=== PATIENT | female | born 1950 | race African-American/Black ===

== ENCOUNTER 2017-01-19 05:20 | Inpatient (IN) | payer OTHER ==
[2017-01-14 13:15] LABS: URINE BLOOD NEGATIVE (Negative); URINE COLOR ORANGE; URINE GLUCOSE-RANDOM* NEGATIVE (Negative); URINE KETONES NEGATIVE (Negative); URINE LEUKOCYTES-REFLEX NEGATIVE (Negative); URINE PROTEIN (DIPSTICK) NEGATIVE (Negative)
[2017-01-14 13:16] LABS: URINE BILIRUBIN NEGATIVE (Negative)
[2017-01-14 13:16] LABS: MCH 26.3 pg (26.0-34.0); MCHC 33.4 g/dL (28.0-37.0); MCV 78.7 fL (80.0-100.0); RBC 4.96 mil/uL (4.20-5.00); RDW 16.2 % (10.5-14.5); WBC 11.2 thou/uL (4.0-11.0)
[2017-01-14 13:23] LABS: CREATININE 0.8 mg/dL (0.6-1.0); POTASSIUM 3.2 mmol/L (3.5-5.1)
[2017-01-14 13:28] LABS: PROTIME 10.7 Seconds (9.3-11.4)
[~2017-01-19] VITALS: Ht 162.6 cm; Wt 93.0 kg
--- NOTE | ~2017-01-19 | O ---
[facility] [place] [address] OPERATIVE REPORT Name: JHONY GALLO Room #: 410-P ADM IN M.R.#: [id number] Admission: 01/19/17 Attend Phys: Jesus Cantu MD Discharge: Date of : 48 Report #: [id number] THIS REPORT FOR: //name// CC: Jesus Hdzson DATE OF SERVICE: 01/19/2017 PREOPERATIVE DIAGNOSIS: Right hip osteoarthritis. POSTOPERATIVE DIAGNOSIS: Right hip osteoarthritis. PROCEDURE: Right total hip arthroplasty. SURGEON: Jesus Cantu MD STAFF SCIENTIST: Marquita Olguin PA-C INDICATIONS FOR STAFF SCIENTIST: Throughout the case, extensive retraction of the tissues as well as dislocation and reduction of the hip was required and this was afforded to me by my physician ssn/ssbn assistant navigator. ANESTHESIA: General. IMPLANTS: Sy and Nephew size 12 high offset Synergy press-fit femur, size 52 R3 acetabular cup with one acetabular screw and a size 36 -3 cobalt chrome head. ESTIMATED BLOOD LOSS: 150 mL. COMPLICATIONS: None. SPECIMENS: None. CONDITION UPON LEAVING THE OR: Stable. INDICATIONS FOR PROCEDURE: The patient is a 66-year-old female with severe right hip osteoarthritis. She had failed conservative treatment for this and after discussion with her, she elected for right total hip arthroplasty. DESCRIPTION OF PROCEDURE: Risks, benefits, alternatives, complications were discussed in detail with the patient including but not limited to risk of anesthesia, risk of damage to nerves, arteries, blood vessels, risk for infection, bleeding, risk for continued hip pain, leg length discrepancy, instability and need for reoperation. Informed consent was obtained from the patient. The right hip was appropriately marked in the preoperative holding area. IV clindamycin was given for preoperative antibiotics. She was brought [address] [address] OPERATIVE REPORT Name: JHONY GALLO Zarina Room #: 410-P [facility] IN ..#: [id number] Admission: 01/19/17 Attend Phys: Jesus Cantu MD Discharge: Date of : 48 Report #: [id number] to the operating room and placed in supine position on operating room table. General endotracheal anesthesia was induced without complication. She was then placed in the left lateral decubitus position with the right hip uppermost. Right hip and lower extremity were prepped and draped in normal sterile fashion. Timeout was performed properly identifying the patient and procedure as well as the instrumentation and implants. All in the operating room were in agreement. A standard posterior approach to the hip was made with 10 blade through the skin. Dissection was taken down to the fascia with Bovie cautery and fascia was cleaned with Low elevator. Fresh 10 blade was used to make a fascial incision. This was taken proximally and distally with curved Grimes scissor. Charnley retractor was placed. The piriformis tendon was identified, tagged and taken down with Bovie. The trochanteric bursa was taken down with Bovie and short external rotators were also taken down with Bovie cautery. Capsulotomy was made and capsule ends were tagged for later repair. The hip was dislocated and there was extensive osteoarthritic change of the femoral head with loss of articular cartilage as well as osteophyte formation. Femoral neck cut was made 1 cm proximal to lesser trochanter based on preoperative templating and the femoral head was removed. Deep acetabular retractors were placed and the labrum was removed sharply. Pulvinar was removed with Bovie cautery. The acetabulum was then sequentially reamed up to a size 52, at which point, there was excellent bleeding cancellous bone. There were 2 cysts in the acetabulum that were curetted out with an angled curette and bone grafted with the reamings from the acetabular reamers. A size 52 R3 acetabular cup was placed. One acetabular screw was placed for backup fixation and a polyethylene liner for a 36 head was placed. After this, attention was turned to the femur. This was reamed and broached up to a size 12, at which point, the size 12 broach was stable. This was trialed with a high offset neck and a 36+0 head. Hip was reduced, taken through range of motion, found to be stable, found to have equal leg lengths. Hip was dislocated and the broach was removed and final size 12 high offset Synergy press fit stem was placed. This did not seat quite as fully as the broach and so this was then trialed with a 36-3 head. Hip was reduced, taken through range of motion, found to be stable, found to have equal leg lengths and good stability. Hip was dislocated once more and a final size 36 -3 cobalt chrome head was placed. Hip was reduced, taken through range of motion, found to be stable, found to have equal leg lengths. A periarticular injection consisting of morphine, ropivacaine, epinephrine and Toradol was placed in the capsular tissues. The capsule was repaired with 0 FiberWire. Piriformis was repaired with 0 FiberWire. Vancomycin 1 gram was placed in the hip joint prior to closure. Fascia was closed with 0 Vicryl, skin was closed with 2-0 Vicryl and 3-0 Monocryl and a YOLANDE dressing was applied. The patient tolerated this procedure well and went to the recovery room under the care of anesthesia postoperatively. <ELECTRONICALLY SIGNED> By: Jesus Cantu MD 01/21/17 0728 [id number] Jesus Cantu MD /nt
[~2017-01-19 05:20] MED LIST: AMBIEN 5 MG TABL5 M1 PO; COZAAR 50 MG TA50 M2 PO; INDAPAMIDE2.5 MG PO; NEURONTIN 300300 M1 PO; NORTRIPTYLINE H50 M3 PO; SERTRALINE HCL50 MG PO; VITAMIN D1000 UNI1 PO
[2017-01-19 09:00] VITALS: BP 141/69
[2017-01-19 13:30] VITALS: BP 126/75
[2017-01-19 14:00] VITALS: BP 121/69
[2017-01-19 15:00] VITALS: BP 110/71
[2017-01-19 16:00] VITALS: BP 120/70
[2017-01-19 21:51] VITALS: BP 114/73
[2017-01-20 01:06] VITALS: BP 99/61
[2017-01-20 04:13] VITALS: BP 101/68
[2017-01-20 06:10] LABS: HEMATOCRIT 29.6 % (37.0-47.0); HEMOGLOBIN 9.8 gm/dL (12.0-15.0); MCH 26.1 pg (26.0-34.0); MCHC 33.1 g/dL (28.0-37.0); MCV 78.7 fL (80.0-100.0); RBC 3.76 mil/uL (4.20-5.00); RDW 16.1 % (10.5-14.5); WBC 13.6 thou/uL (4.0-11.0)
[2017-01-20 07:45] VITALS: BP 112/69
[2017-01-20 15:00] VITALS: BP 123/63
[2017-01-20 19:26] VITALS: BP 108/66
[2017-01-21 04:48] VITALS: BP 97/62
[2017-01-21 06:05] LABS: HEMATOCRIT 31.9 % (37.0-47.0); HEMOGLOBIN 10.6 gm/dL (12.0-15.0); MCHC 33.2 g/dL (28.0-37.0); MCV 78.3 fL (80.0-100.0); RBC 4.07 mil/uL (4.20-5.00); RDW 16.2 % (10.5-14.5)
[2017-01-21] MEDS ORDERED: CVS BUFFERED A325 MG PO (08:27)
[2017-01-21] MEDS ORDERED: PERCOCET 10-321 EACH PO (08:28)
[2017-01-21] MEDS ORDERED: MS CONTIN15 MG PO (08:28)
[2017-01-21 08:45] VITALS: BP 109/68
[2017-01-21 09:59] VITALS: BP 109/68
== END 2017-01-21 11:14 | disposition home or self-care (01) | DRG 470 ==
LOC: PRE 05:20 → 4N 05:24 → TBA 05:24 → PRE 10:45 → 4N 13:44 → ENTRNSPT 01-21 11:14 → DELTRNSPT 01-21 11:15
PROVIDERS: Orthopaedic Surgery
PROC: 0SR904Z Replacement of Right Hip Joint with Ceramic on Polyethylene Synthetic Substitute, Open Approach (ICD-10-PCS; principal; 2017-01-19)
DX: M16.11 Unilateral primary osteoarthritis, right hip (principal); I10 Essential (primary) hypertension; Z88.0 Allergy status to penicillin; Z88.1 Allergy status to other antibiotic agents; Z88.2 Allergy status to sulfonamides
CPT/HCPCS: 10790; 50010; 50101; 50382; 50414; 51057; 51226; 51771; 53000; 53367; 54118; 56460; 56524; 56527; 56528; 56530; 57095; 62110; 62900; 70005

== ENCOUNTER 2018-08-23 05:39 | Inpatient (IN) | payer OTHER ==
[2018-08-17 09:09] LABS: URINE BILIRUBIN NEGATIVE (Negative); URINE BLOOD TRACE (Negative); URINE CLARITY CLEAR; URINE COLOR YELLOW; URINE GLUCOSE-RANDOM* NEGATIVE (Negative); URINE KETONES NEGATIVE (Negative); URINE LEUKOCYTES-REFLEX NEGATIVE (Negative); URINE NITRITE-REFLEX NEGATIVE (Negative); URINE PROTEIN (DIPSTICK) NEGATIVE (Negative); URINE SPECIFIC GRAVITY <= 1.005 (1.005-1.035); URINE UROBILINOGEN 0.2 E.U./dl (0.2-1.0)
[2018-08-17 09:12] LABS: PROTIME 10.2 Seconds (9.3-11.4)
[~2018-08-23] VITALS: Ht 160 cm; Wt 92.5 kg
--- NOTE | ~2018-08-23 | O ---
[facility] [place] [address] OPERATIVE REPORT Name: JHONY GALLO Room #: 150-6 ADM IN M.R.#: [id number] Admission: 08/23/18 ������������������ Attend Phys: Jesus Cantu MD Discharge: ������������������ Date of : 48 Report #: [id number] THIS REPORT FOR: //name// CC: Jesus Berman DATE OF SERVICE: 08/23/2018 PREOPERATIVE DIAGNOSIS: Left knee valgus osteoarthritis. POSTOPERATIVE DIAGNOSIS: Left knee valgus osteoarthritis. PROCEDURE: Left total knee arthroplasty with Navio robotic assistance. SURGEON: Jesus Cantu M.D. STAFF GENETIC COUNSELOR: Marquita Olguin PA-C. INDICATIONS FOR STAFF GENETIC COUNSELOR: Throughout the case, extensive retraction and manipulation of the knee was required. This was afforded to me by my pediatric medical assistant. ANESTHESIA: LMA with an adductor canal block. IMPLANTS: Sy and Nephew size 5 Legion cobalt-chrome posterior stabilized femur, size 4 tibia, size 9 highly constrained polyethylene and size 32 patella. TOURNIQUET TIME: 62 minutes. ESTIMATED BLOOD LOSS: 25 mL. COMPLICATIONS: None. SPECIMENS: None. CONDITION UPON LEAVING THE OPERATING ROOM: Stable. INDICATION FOR PROCEDURE: The patient is a 67-year-old female with severe left knee valgus osteoarthritis. She had failed conservative measures for this and after discussion with her, she elected for left total knee arthroplasty. DESCRIPTION OF PROCEDURE: Risks, benefits, alternatives and complications were discussed in detail with the patient including, but not limited to risk of anesthesia; risk of damage to nerves, arteries or blood vessels; risk for infection or bleeding; risk for continued knee pain and need for reoperation. Informed consent was obtained from the patient. [address] [address] OPERATIVE REPORT Name: JHONY GALLO Room #: 150-6 ADM IN M.R.#: [id number] Admission: 08/23/18 ������������������ Attend Phys: Jesus Cantu MD Discharge: ������������������ Date of : 48 Report #: [id number] The left knee was appropriately marked in the preoperative holding area. IV clindamycin was given for preoperative antibiotics. She was brought to the operating room and placed in the supine position on the operating room table. LMA anesthesia was induced without complication. Tourniquet was placed on the left thigh. Left lower extremity was prepped and draped in the normal sterile fashion. Timeout was performed, properly identifying the patient and procedure as well as the instrumentation and implants. All in the operating room were in agreement. The left lower extremity was exsanguinated, tourniquet was inflated. Tourniquet time was 62 minutes. Standard midline approach to the knee was made with 10 blade through the skin. Dissection was taken down sharply to the fascia and deep flaps were developed medially and laterally. Fresh 10 blade was used to make a medial parapatellar arthrotomy and the knee was inspected. There was severe valgus osteoarthritic change. ACL and PCL were removed sharply. Reference pins were then placed in the femur and the tibia and the knee was digitally mapped using the Navio robotic system. Intraoperative plan was made and we sized to a size 5 femur, size 4 tibia with a size 9 polyethylene. After acceptance of the intraoperative plan, the distal femoral cut was made using the Navio morelia. The 4-in-1 size 5 cutting block was then placed. Anterior and posterior chamfer cuts were made. Attention was then turned to the tibia. The remainder of the menisci was removed with Bovie cautery. Tibial resection guide was pinned in place using the Navio port placement and the tibial resection was made. After this, flexion and extension gaps were checked and found to have good balance laterally, with moderate laxity medially. We did not want to melba our medial gap and it was felt that a highly constrained polyethylene would make up for the laxity medially. The tibia was sized and found to be a size 4. A size 4 tibial trial was placed, pinned and punched. A size 5 femoral trial was placed and the box cut was made. This was then trialed with a size 9 highly constrained polyethylene. Knee was taken through range of motion and found to have good stability, both medially and laterally, throughout range of motion both digitally as well as medially. A 9 mm was taken off the posterior surface of the patella and a size 32 patellar trial button was placed. Knee was taken through range of motion and found to be stable and found to have good patellar tracking. After this, trial components were removed. Bony ends were thoroughly irrigated with normal saline. A final size 4 tibia, size 5 Legion cobalt-chrome posterior stabilized femur and a size 32 patella were cemented in place using standard cementation techniques. While the cement cured, a periarticular injection consisting of morphine, ropivacaine, epinephrine and Toradol was placed around the knee joint capsule. After the cement cured, the tourniquet was deflated and hemostasis was obtained with Bovie cautery. A final size 9 highly constrained polyethylene was placed. A gram of vancomycin was placed in the joint and fascia was closed with 0 Vicryl, skin was closed with 2-0 Vicryl and 3-0 Monocryl. Dermabond and a YOLANDE dressing was applied. The patient [address] [address] OPERATIVE REPORT Name: JHONY GALLO Room #: 150-6 [facility] IN ..#: [id number] Admission: 08/23/18 ������������������ Attend Phys: Jesus Cantu MD Discharge: ������������������ Date of : 48 Report #: [id number] tolerated this procedure well and went to recovery room under the care of Anesthesia postoperatively. ��������������������������������������������� ���������������������������������������� By: ��������������������������������������������� 1237 [id number] Jesus Cantu MD /nt
[~2018-08-23 05:39] MED LIST changes: +ASPIR 8181 MG PO; +COZAAR100 MG PO; +CVS BUFFERED A325 MG PO; +MS CONTIN15 MG PO; +NORTRIPTYLINE H50 MG PO; +PERCOCET 10-321 EACH PO; +REMERON 30 MG T30 M1 PO; +TRI-BUFFERED A325 M1 PO; +VENTOLIN HFA 1818 GM INH; +ZOLOFT100 MG PO
[2018-08-23 12:08] VITALS: BP 133/67
[2018-08-23 17:00] VITALS: BP 129/84
[2018-08-23 20:03] VITALS: BP 116/69
[2018-08-24] VITALS: BP 116/71
[2018-08-24 04:00] VITALS: BP 116/71
[2018-08-24 04:10] VITALS: BP 116/71
[2018-08-24 05:38] LABS: HEMATOCRIT 32.2 % (37.0-47.0); HEMOGLOBIN 10.7 gm/dL (12.0-15.0); MCH 26.6 pg (26.0-34.0); MCHC 33.2 g/dL (28.0-37.0); MCV 80.1 fL (80.0-100.0); RBC 4.02 mil/uL (4.20-5.00); RDW 16.4 % (10.5-14.5); WBC 15.7 thou/uL (4.0-11.0)
[2018-08-24 07:26] VITALS: BP 104/68
--- NOTE | 2018-08-24 07:31 | NUR ---
progress pain controlled with scheduled meds and prn hydrocodone up with 1 walker and gait belt gait steady voiding qs block to left leg still working numbness and tingling dissipated throughout night. ivf's infusing as ordered, pedal pulses positive good sensation and movement weight bearing without difficulty continue to monitor.
--- NOTE | 2018-08-24 13:15 | NUR ---
TOWARDS POC PT A/O X4, VSS,AFEBRILE. PAIN MANAGED BY MEDS. PT THERAPY ABLE TO WORK WITH HER. PT ABLE TO WALK TO THE ST. NO CONCERNS VOICED, WILL CONTINUE TO MONITOR.
[2018-08-24 14:05] VITALS: BP 110/56
--- NOTE | 2018-08-24 14:39 | NUR ---
PT ADMITTED RELATED TO LEFT TOTAL KNEE REPLACEMENT. CM REVIEWED CHART AND SPOKE WITH CARE TEAM. CM MET WITH PT AT BEDSIDE THIS DAY. PT IS A&O X4. CM ROLE INTRODUCED. PT INDICATED SHE SHE LIVES IN A HOUSE WITH HER SON WITH NO STEPS TO ENTER BUT 13 STEPS TO MAIN LIVING AREA. PT INDICATED SHE HAS FWW ISSUED WHEN SHE HAD A HIP REPLACEMENT IN 2017. 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 PT INDICATED SHE IS ESTABLISHED WITH OP PT AT [facility]. CM TO FOLLOW SHOULD ANY DC NEEDS ARISE.
--- NOTE | 2018-08-24 17:45 | NUR ---
PATIENT JUST ARRIVED ON UNIT FROM #461 TO ROOM #226. PATIENT ORIENTED AND SETTLED IN BED. CALL LIGHT WITHIN REACH.
[2018-08-24 19:44] VITALS: BP 136/75
--- NOTE | 2018-08-25 02:16 | NUR ---
Assumed pt. care at 1900. Remains A&Ox3; swallows meds whole w/o difficulty. Remains cont. B&B. Ambulates to bathroom w/ walker; gait steady. Remains s/p L total Knee. DRSG to site remains C/D/I, at this time. Knee high teds intact to BLEs. R wrist SL noted/flushed w/ NS w/o difficulty; no blood return noted. Glasses noted to face. Pt has no c/o pain or discomfort. No s/s of acute distress noted. Pt. asleep in bed w/ call light/desired belongings withi reach. PO fluids encouraged. Will continue to monitor.
[2018-08-25 06:46] LABS: HEMATOCRIT 34.1 % (37.0-47.0); HEMOGLOBIN 11.3 gm/dL (12.0-15.0); MCH 26.6 pg (26.0-34.0); MCHC 33.2 g/dL (28.0-37.0); MCV 80.2 fL (80.0-100.0); RBC 4.26 mil/uL (4.20-5.00); RDW 16.5 % (10.5-14.5)
[2018-08-25 07:42] VITALS: BP 120/80
--- NOTE | 2018-08-25 10:06 | NUR ---
SW reviewed chart and spoke with nursing and attending physician. Pt was [facility] to [facility] and is progressing towards goals for discharge. Pt is s/p left TKA. Discharge home with outpatient therapy is anticipated for tomorrow. KALLIE is following to assist as needed with discharge planning.
[2018-08-25] MEDS ORDERED: TRI-BUFFERED A325 M1 PO (10:16)
--- NOTE | 2018-08-25 12:14 | NUR ---
SW received consult for HH services. SW reviewed chart and spoke with nursing. Pt was transferred to [facility] from and is progressing towards goals for discharge. Discharge home is anticipated for tomorrow. KALLIE met with pt at bedside to discuss discharge plan. Pt agreeable with having HH services at time of discharge and then will transition to outpatient therapy at [facility]. KALLIE provided pt with list of in-network HH agencies for review. No preference voiced. Patient Vendor Choice Letter signed and placed on chart. KALLIE confirmed pt's home address and phone number. Pt's PCP is Dr. Good Berman. KALLIE notified intake at [facility] of new HH referral. KALLIE is following to assist as needed with discharge planning.
[2018-08-25 13:23] VITALS: BP 120/80
--- NOTE | 2018-08-25 13:59 | NUR ---
PATIENT CARE WAS ASSUMED AT 0715.PATIENT IS ALERT AND ORIENTED X4.PATIENT WAS OKAY TO AMBULATE ON HER OWN WITH WALKER PER PT.PATIENT HAS IV INTACT AND SALINE LOCKED.PATIENT HAS NO PAIN AT THIS TIME.WILL GIVE PAIN MEDS WITH MORNING MEDS.PT HAS CALL LIGHT,PHONE, AND PERSONAL BELONGINGS WITHIN REACH.
--- NOTE | 2018-08-25 14:09 | NUR ---
PATIENT WAS DISCHARGED TO GO HOME WITH HOME HEALTH.IV WAS TAKEN OUT.DISCHARGE PAPERWORK WAS GIVEN TO PATIENT WITH EDUCATION ON NEW MEDS.PATIENT HAS ALLOF HER BELONGINGS.PT WAS TAKEN TO CAR WITH FRIEND, AND TRANSPORT.
== END 2018-08-25 14:15 | disposition home health service (06) | DRG 470 ==
LOC: 4W 05:39 → TBA 05:39 → PRE 05:41 → 4W 17:34 → SICU 08-24 17:38 → ENTRNSPT 08-25 13:42 → EDTRNSPTSTS 08-25 13:45 → SICU 08-25 14:15
PROVIDERS: ADMIT Orthopaedic Surgery
PROC: 0SRD0J9 Replacement of Left Knee Joint with Synthetic Substitute, Cemented, Open Approach (ICD-10-PCS; principal; 2018-08-23)
PROC: 8E0Y0CZ Robotic Assisted Procedure of Lower Extremity, Open Approach (ICD-10-PCS; principal; 2018-08-23)
DX: M17.12 Unilateral primary osteoarthritis, left knee (principal); F41.9 Anxiety disorder, unspecified; F32.9 Major depressive disorder, single episode, unspecified; I10 Essential (primary) hypertension; M21.062 Valgus deformity, not elsewhere classified, left knee; Z79.82 Long term (current) use of aspirin; Z79.899 Other long term (current) drug therapy; Z88.1 Allergy status to other antibiotic agents; Z88.0 Allergy status to penicillin; Z88.2 Allergy status to sulfonamides
CPT/HCPCS: 10047; 15002; 50010; 50101; 50415; 50954; 51130; 51225; 53000; 53078; 53364; 54118; 56527; 56528; 57095; 57103; 57110; 57127; 57180; 62110; 62900; 64043; 65060; 70005